=== PATIENT | male | born 1950 | race Caucasian/White ===

== ENCOUNTER 2022-03-18 09:40 | Outpatient (CLI) | payer MEDICARE, BC ==
[2022-03-18 10:56] LABS: Anion Gap 13 mmol/L (10-20); BUN (Urea Nitrogen) 12 mg/dL (8.4-25.7); Calc. Creatinine Clearance 0 mL/min (70-130); Calcium 9.8 mg/dL (7.8-10.44); Carbon Dioxide 29 mmol/L (23-31); Chloride 102 mmol/L (98-107); Glucose 91 mg/dL (83-110); Potassium 3.6 mmol/L (3.5-5.1); Sodium 140 mmol/L (136-145)
[2022-03-18 20:29] LABS: SARS-CoV-2 PCR by NAA Not Detected (NotDetected)
== END 2022-03-18 09:41 | disposition home or self-care (01) ==
LOC: CSHLAB 09:40
PROVIDERS: ATTEND Surgery
DX: Z01.818 Encounter for other preprocedural examination (principal); Z20.822 Contact with and (suspected) exposure to COVID-19; K40.90 Unilateral inguinal hernia, without obstruction or gangrene, not specified as recurrent
CPT/HCPCS: 80048; 93005; 93010; U0003; U0005

== ENCOUNTER 2022-03-21 10:22 | Day surgery (SDC) | payer MEDICARE, BC ==
[2022-03-18 12:04] VITALS: BMI 32.5
[2022-03-21] MEDS ORDERED: Lidocaine 1% MPF 2 ML VIAL ONE (11:07)
[2022-03-21] MEDS ORDERED: HYDROcodone/Acetaminophen 5/325 mg Tablet PO PRN (12:21)
[2022-03-21] MEDS ORDERED: Acetaminophen 325 MG TAB PO PRN (12:21)
[2022-03-21] MEDS ORDERED: EPINEPHrine 1 MG/ML AMP ONE (12:46)
[2022-03-21] MEDS ORDERED: Bupivacaine PF 0.5% 30 ML VIAL ONE (12:46)
[2022-03-21] MEDS ORDERED: PROPOFOL 20 ML ONE (13:03)
[2022-03-21] MEDS ORDERED: Fentanyl 100 MCG/2 ML VIAL ONE ×2 (13:03→14:27)
[2022-03-21] MEDS ORDERED: Rocuronium Bromide 10 MG/ML (10ML VIAL) ONE (13:04)
[2022-03-21] MEDS ORDERED: Dexamethasone 4 mg/ml Vial ONE (13:04)
[2022-03-21] MEDS ORDERED: Ondansetron PF 4 MG/2 ML Vial ONE (13:04)
[2022-03-21] MEDS ORDERED: Lidocaine 1% PF 5 ML VIAL ONE (13:04)
[2022-03-21] MEDS ORDERED: ceFAZolin 2 GM/Dextrose 50 ML IVPB ONE (13:12)
[2022-03-21] MEDS ORDERED: Glycopyrrolate 0.2 MG/ML 5 ML SYRINGE ONE (13:34)
[2022-03-21] MEDS ORDERED: ePHEDrine Sulfate 50 MG/10 ML VIAL ONE (13:36)
[2022-03-21] MEDS ORDERED: Ketorolac Tromethamine 30 MG/ML VIAL ONE (13:49)
== END 2022-03-21 15:20 | disposition home or self-care (01) ==
LOC: CSHSDC 10:22
PROVIDERS: ATTEND Surgery
PROC: 0YU54JZ Supplement Right Inguinal Region with Synthetic Substitute, Percutaneous Endoscopic Approach (ICD-10-PCS; principal; 2022-03-21)
DX: K40.90 Unilateral inguinal hernia, without obstruction or gangrene, not specified as recurrent (principal); I10 Essential (primary) hypertension; Z79.899 Other long term (current) drug therapy; E78.00 Pure hypercholesterolemia, unspecified; Z87.891 Personal history of nicotine dependence
CPT/HCPCS: 49650; C1713; J0171; J0690; J1100; J1885; J2405; J2704; J3010; S0020